=== PATIENT | female | born 1985 | race Hispanic/Latino ===

== ENCOUNTER 2023-12-07 18:46 | Emergency (ER) | payer OTHER ==
[~2023-12-07] VITALS: Ht 147.3 cm; Wt 105.9 kg
[2023-12-07 19:15] VITALS: PULSE 103; RESP 20; TEMP 98.1; O2SAT 98
[2023-12-07] MEDS: TETANUS/DIPHTHERIA TOX ADULT 0.5 ML SYR IM ONE (19:42)
== END 2023-12-07 19:40 | disposition home or self-care (01) ==
LOC: FSED 18:50
DX: S50.812A Abrasion of left forearm, initial encounter (principal); M54.9 Dorsalgia, unspecified; V43.52XA Car driver injured in collision with other type car in traffic accident, initial encounter; Y92.488 Other paved roadways as the place of occurrence of the external cause
CPT/HCPCS: 90471; 90714; 99282